=== PATIENT | female | born 1955 | race Caucasian/White ===

== ENCOUNTER 2022-03-14 06:44 | Day surgery (SDC) | payer OTHER ==
[2022-03-08 12:18] LABS: Potassium 4.1 mmol/L (3.5-5.1)
[2022-03-08 12:19] LABS: Absolute Lymphocytes (CBC) 2.9 K/uL (0.7-4.9); Hematocrit 36.4 % (36.0-45.0); Lymphocytes % 36.1 % (15.3-44.8); MCV 87.8 fL (80-100); MPV 7.4 fL (7.6-11.3); RBC Red Blood Cell Count 4.15 M/uL (3.86-4.86)
[2022-03-08 12:31] LABS: SARS-CoV-2 Antigen Rapid Res Negative (Negative)
--- NOTE | 2022-03-08 12:33 | RAD REPORT ---
EXAM DESCRIPTION: RAD - Chest Pa And Lat (2 Views) - 03/08/2022 12:25 pm CLINICAL HISTORY: pre op for surgery, pending cholecystectomy COMPARISON: None TECHNIQUE: Frontal and lateral views of the chest were obtained. FINDINGS: The lungs are fibrotic. No focal mass or consolidations seen. Hilar regions within normal limits. Diaphragm is flattened. Heart size is normal and central vasculature is within normal limit s. No pleural effusion or pneumothorax seen. No acute bony finding noted. No aortic abnormality. IMPRESSION: Mild fibrotic lung pattern with no acute cardiopulmonary finding.
--- NOTE | 2022-03-09 07:21 | EKG ---
Test Date: 2022-03-08 Test Time: 11:47:36 [employer] Operator: DOMINGUEZ MEASUREMENT RESULTS: Intervals: Rate: 88 FL: 152 QRSD: 80 QT: 362 QTc: 438 [place]: P: 64 FL: 152 QRS: 41 T: 49 INTERPRETIVE STATEMENTS: Normal sinus rhythm Normal ECG No previous ECG available for comparison Electronically Signed On 03-09-22 07:18:41 CDT by Santino Pham
[2022-03-14] MEDS ORDERED: Ringers Lactate 1,000 ML IV ONE (07:10)
[2022-03-14] MEDS ORDERED: CEFOXITIN SODIUM 1 GM/VIAL ONE (07:10)
[2022-03-14] MEDS ORDERED: BUPIVACAINE 0.25% PF 10 ML VIAL ONE (07:38)
[2022-03-14] MEDS ORDERED: CELECOXIB 100 MG CAPSULE ONE (07:50)
[2022-03-14] MEDS ORDERED: ALBUTEROL 2.5 MG/3 ML NEB SOL ONE ×2 (07:50→09:39)
[2022-03-14] MEDS ORDERED: ACETAMINOPHEN 500 MG TAB ONE (07:50)
[2022-03-14] MEDS ORDERED: LIDOCAINE 1% MPF 5 ML VIAL ONE (07:51)
[2022-03-14] MEDS ORDERED: ONDANSETRON 4 MG/2 ML VIAL ONE (07:51)
[2022-03-14] MEDS ORDERED: propofoL 200 MG/20 ML VIAL IV ONE (07:51)
[2022-03-14] MEDS ORDERED: FENTANYL CITR 100 MCG/2 ML ONE (07:51)
[2022-03-14] MEDS ORDERED: ROCURONIUM 50 MG/5 ML VIAL IV ONE (07:51)
[2022-03-14] MEDS ORDERED: MIDAZOLAM HCL 2 MG/2 ML INJ ONE ×2 (07:51→07:52)
[2022-03-14] MEDS ORDERED: dexAMETHasone 4 MG/ML VIAL ONE (08:29)
--- NOTE | 2022-03-14 08:50 | P.OP ---
Preoperative diagnosis: Chronic Cholecystitis Postoperative diagnosis: Chronic Cholecystitis Primary procedure: Laparoscopic Cholecystectomy with ICG cholangiography Anesthesia: GETA + Local Estimated blood loss: <5cc Specimen: Gallbladder Findings: Chronic Cholecystitis, Distended Gallbladder Complications: None Transferred to: Recovery Room Condition: Good
[2022-03-14] MEDS ORDERED: GLYCOPYRROLATE 0.2 MG/ML SYR ONE (08:58)
[2022-03-14] MEDS ORDERED: NEOSTIGMINE 1 MG/ML -10 ML VIAL ONE (08:58)
[2022-03-14] MEDS ORDERED: HYDROCODONE/APAP 5/325 MG TAB ONE (10:08)
[2022-03-14 10:09] VITALS: BP 113/50; TEMP 96.1; O2SAT 92
--- NOTE | 2022-03-14 10:22 | OP ---
Date of Procedure: 03/14/2022 Surgeon: Magdiel Lynch MD, Preoperative Diagnosis: Chronic cholecystitis. Postoperative Diagnosis: Chronic cholecystitis. Procedure Performed: Laparoscopic cholecystectomy with indocyanine green cholangiography. Anesthesia: General endotracheal plus local with 0.25% Marcaine. Estimated Blood Loss: Less than 5 cc. Specimen: Gallbladder. Findings: Chronic cholecystitis and distended gallbladder. Complications: None. Disposition: Patient was transferred to the recovery room in good condition. Procedure In Detail: After informed consent was obtained, patient was brought to the operating room, prepped and draped in the usual sterile fashion. After adequate anesthesia was achieved, supraumbil ical area was then anesthetized with 0.25% Marcaine, sharply incised. A 5 mm 0-degree optical trocar was introduced in the abdomen without evidence of complication. Insufflation was obtained to 15 mmH g at this time. No injury to vital structures upon entry to the abdomen. 2 additional trocars were placed, 1 in the epigastric, 1 in the right upper quadrant. Both of these were similarly anesthetize d, sharply incised. A 5 mm trocar was placed under direct visualization without complication. The u mbilical trocar was then upsized to a 12 mm under direct vision without complication. Patient was po sitioned head up right-side up position. Ratcheted grasper was used to grasp the patient's gallbladd er, placed towards the patient's right shoulder and dissection continued down near the Evelyn pouch and the gallbladder to dissect 2 structures identified as both the cystic duct and cystic artery. I CG cholangiography was performed at this time and confirmed the anatomy at the cystic duct common anam t junction, which was not in close apposition to the cystic duct. Transection point to be planned. After these structures were skeletonized, critical view of safety was obtained at this point. Double titanium clips were placed, doubly on the proximal side and singly on the distal side of both the cy stic duct and cystic artery. These structures were then ligated with Endo Martir without evidence of complication. There was no leakage of blood or bile from the clips at this point. The gallbladder was then removed from the hepatic fossa with minimal electrocautery, placed in EndoCatch bag and ceci mk from the umbilical trocar and sent off for pathologic examination. The abdomen was then insuffla magdiel at this point. Minimal fulguration was required on the hepatic bed with good hemostasis at this point on the midportion of the hepatic bed without evidence of complication. The area was irrigated once again and suctioned out completely dry. The patient was positioned back in neutral position. T he umbilical trocar site was closed using a Jules-Miguel suture passer with 0 Vicryl interrupted f ashion. Good approximation of tissues. The abdomen was completely desufflated under direct visualiz ation without complication. All remaining trocars were removed. All skin sites were copiously irrig ated, closed with 4-0 Monocryl in a running fashion and Dermabond placed over top. Patient tolerated the procedure well without evidence of complication and transferred to PACU in good condition. All counts were correct at the end of the case. MARGARETTE/CANDICE Voice ID: [id number] Report ID: [id number]
== END 2022-03-14 10:23 | disposition home or self-care (01) ==
LOC: PRE 06:44
PROVIDERS: ATTEND Surgery
PROC: BF03YZZ Plain Radiography of Gallbladder and Bile Ducts using Other Contrast (ICD-10-PCS; 2022-03-14)
PROC: 0FT44ZZ Resection of Gallbladder, Percutaneous Endoscopic Approach (ICD-10-PCS; 2022-03-14)
PROC: 0FT44ZZ Resection of Gallbladder, Percutaneous Endoscopic Approach (ICD-10-PCS; principal; 2022-03-14 08:00)
DX: K80.10 Calculus of gallbladder with chronic cholecystitis without obstruction (principal); E03.9 Hypothyroidism, unspecified; E78.00 Pure hypercholesterolemia, unspecified; Z20.822 Contact with and (suspected) exposure to COVID-19
CPT/HCPCS: 36415; 71046; 80048; 85025; 87811; 88304; 93005; J0694; J1100; J2001; J2250; J2405; J2704; J2710; J3010; J7120